=== PATIENT | male | born 1945 ===

== ENCOUNTER 2017-06-23 13:07 | Emergency (ER) | payer OTHER, MEDICARE ==
[~2017-06-23 13:07] MED LIST: ALBUTEROL 3 ML3 ML INH; ALBUTEROL0.09 MG/A1 INH; ALLOPURINOL300 MG PO; ATROVENT HFA 121 PUF INH; BUFFERIN LOW DO81 MG PO; CALCIUM 600600 M1 PO; DOXYCYCLINE100 MG PO; FUROSEMIDE40 MG PO; HCTZ/TRIAMTEREN1 CAP PO; METOPROLOL SUCC50 M1 PO; MIRALAX17 GM PO; MULTIVITAMIN1 TAB PO; PROSCAR5 MG PO; ZYRTEC ALLERGY10 MG PO
--- NOTE | 2017-06-23 16:51 | ED GI/GU/ABDOMINAL COMPLAINT ---
History of Present Illness General Chief Complaint: General Adult Stated Complaint: RECTAL BLEEDING Source: patient Exam Limitations: no limitations Vital Signs & Intake/Output Vital Signs & Intake/Output Vital Signs Date Time Temp Pulse Resp B/P B/P Pulse O2 O2 Flow FiO2 Mean Ox Delivery Rate 06/23 1832 82 20 117/73 98 Room Air 06/23 1600 98.0 88 20 122/78 100 Room Air 06/23 1338 97.0 88 18 119/83 93 Room Air Allergies Coded Allergies: adhesive (RASH 06/23/17) bacitracin (From NEOSPORIN ([id number])) (RASH 06/23/17) neomycin (From NEOSPORIN ([id number])) (RASH 06/23/17) polymyxin B (From NEOSPORIN ([id number])) (RASH 06/23/17) Reconcile Medications Allopurinol 300 MG TABLET 1 TAB PO DAILY GOUT (Reported) Alprazolam 0.25 MG TABLET 2 TAB PO PRN ANXIETY (Reported) Aspirin (Ecotrin*) 81 MG TABLET.DR 1 TAB PO QAM HEART/BLOOD (Reported) Calcium Carbonate/Vitamin D3 (Calcium 600+D Softgel) 600 MG CALCIUM-200 UNIT CAPSULE 1 CAP PO BID SUPPLEMENT (Reported) Cetirizine HCl (Zyrtec) 10 MG TABLET 1 TAB PO QPM ALLERGIES (Reported) Ciclopirox Olamine (Ciclopirox) 0.77 % CREAM..G. 1 ENMA TOP QAM ANTIFUNGAL ( Reported) apply to affected area(s) Desonide 0.05 % CREAM..G. 1 ENMA TOP BID BOTH LEGS (Reported) apply to affected area(s) Famotidine (Pepcid) 20 MG TABLET 1 TAB PO QPM GI (Reported) Finasteride 5 MG TABLET 1 TAB PO QPM BPH (Reported) Furosemide 40 MG TABLET 2 TAB PO QAM DIURETIC (Reported) Furosemide (Lasix) 40 MG TABLET 1 TAB PO DAILY DIURETIC (Reported) Ipratropium [place] 42 MCG (0.06 %) SPRAY 2 SPRAY NASB TID RUNNY NOSE ( Reported) Melatonin 5 MG CAPSULE 1 CAP PO PRN SUPPLEMENT (Reported) Metoprolol Succinate 50 MG TAB.ER.24H 1 TAB PO QAM PSVT (Reported) Mometasone Furoate 0.1 % SOLUTION 1 ENMA TOP PRN SCALP ITCHING (Reported) Multivitamin (Multi-Day Vitamins) 1 EACH TABLET 1 TAB PO DAILY SUPPLEMENT ( Reported) Mupirocin 2 % OINT...G. 1 ENMA TOP PRN LEG SORES (Reported) apply to affected area(s) Naproxen 500 MG TABLET 1 TAB PO PRN PAIN (Reported) Nystatin (Nystop) 100,000 UNIT/GRAM POWDER 1 ENMA TOP QAM ANTIFUNGAL (Reported ) Polyethylene Glycol 3350 17 GRAM/DOSE POWDER 17 GM PO QAM GI (Reported) Potassium Chloride 20 MEQ TAB.ER.PRT 1 TAB PO BID SUPPLEMENT (Reported) Triamterene/Hydrochlorothiazid (Triamterene-Hctz 37.5-25 MG Cp) 37.5 MG-25 MG CAPSULE 1 CAP PO DAILY EDEMA (Reported) Triage Note: PT C/O RECTAL BLEEDING, STATES HE THINKS IT IS A HEMORRHOID. HAS A HX OF THE SAME. CALLED PCP AND GI DOCTOR AND TOLD TO COME TO THE ER. DENIES ANY ABDOMINAL PAIN. Triage Nurses Notes Reviewed? yes Duration: constant Timing: recent history Quality/Severity: moderate Severity Numbers: 5 Location: unknown Radiation: no radiation Activities at Onset: none HPI: Patient is a 71-year-old male with past medical history of, morbid obesity, muscular dystrophy- non-ambulatory, kidney cancer in remission status post left nephrectomy, brain AVM with cerebral hemorrhage,, blood pressure, BPH, hemorrhoids who presents to emergency room STATING THAT yesterday he woke up in his bed and noted bright red blood soaking his sheets and mattress. Patient denies any active bleeding that day and was asymptomatic Patient states that he had a bowel movement that day, yesterday and it was no melena no bright red blood noted he states it was normal brown color Patient does state that he woke up again and his bed in which she noted bright red blood in his sheet and the mattress however it was less in volume. Patient became concerned and presents to emergency room. Patient denies any fever, chills, lightheaded sensation abdominal pain nausea vomiting. Patient states that he has received colonoscopy showing concerns in the past of hemorrhoids. She is able to tolerate by mouth. (JAM DAY) Past History Travel History Traveled to [place] past 21 day No Medical History Any Pertinent Medical History? 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 No (JAM DAY) Review of Systems Review of Systems Constitutional: Reports: no symptoms. EENTM: Reports: no symptoms. Respiratory: Reports: no symptoms. Cardiovascular: Reports: no symptoms. GI: Reports: see HPI. Genitourinary: Reports: no symptoms. Musculoskeletal: Reports: no symptoms. Skin: Reports: no symptoms. Neurological/Psychological: Reports: no symptoms. Hematologic/Endocrine: Reports: see HPI, bleeding. Immunologic/Allergic: Reports: no symptoms. All Other Systems: Reviewed and Negative (JAM DAY) Physical Exam Physical Exam General Appearance: no apparent distress, alert, obese Head: atraumatic Eyes: Bilateral: normal appearance. Neck: normal inspection, supple Respiratory: normal breath sounds, chest non-tender Cardiovascular: regular rate/rhythm Gastrointestinal: normal bowel sounds, soft, non-tender Rectal: normal rectal tone Extremities: normal range of motion Neurologic/Psych: no motor/sensory deficits Skin: warm/dry Comments: rectal- noted nonthrombosed nontender external hemorrhoid with no active bleeding no discharge noted minimal 5 mm internal nonthrombosed nontender internal hemorrhoid with no active bleeding No surrounding rectal or perirectal fluctuance or erythema tenderness or induration Brown stool noted no melena negative fecal occult blood test Diagram Body Front & Back 1) Noted 1 cm blood blister with centralized opening with upon palpation and pressure there was mild bleeding noted no surrounding erythema no warmth no tenderness no active purulent discharge 2) Noted erythema nontender 3) Noted erythema nontender 4) 4 cm linear well-healing excoriation with no active bleeding no active discharge Core Measures ACS in differential dx? No Severe Sepsis Present: No Septic Shock Present: No (JAM DAY) Progress Differential Diagnosis: biliary colic, bowel obstruction, colon cancer, cholecystitis, diverticulitis, epididymitis, esophageal varices, gastritis, hepatitis, hernia, hemorrhoids, ischemic bowel, inflamm bowel dis, Vijaya-Nellie tear, orchitis, pancreatitis, prostatitis, peptic ulcer, PUD/GERD, perforated viscous, pyelonephritis, SBO, STD, testicular torsion, ureterolithiasis, urinary retention, urethritis, UTI/pyelo Plan of Care: Orders Procedure Date/time Status CASE MANAGEMENT CONSULT 06/23 1914 Active Patient on examination has no concerns of rectal bleeding on examination. Patient's vital signs were unremarkable. Patient has nontender abdomen. Due to history of present illness and exam findings or suspicion of a blood blister to the sacral region which is most likely causing the bleeding. No surrounding concern of infection to this area I applied gauze and Tegaderm for dressing application and to cease future occurrences of bleeding Patient's rectal region was thoroughly inspected whichconcerns of active hemorrhoid bleeding or concerns of perirectal or rectal abscess. No concerns of cellulitis or surrounding infection. Patient's right lower extremity was also inspected which shows no concerns of infection to the excoriation noted from the diagram dictated from the exam Patient does have concerns of lower extremity chronic stasis dermatitis and no concerns of cellulitis at this point Discussed patient with case management who will evaluate for home wound care services Patient home wound care services lives in a private residence in which his family takes care of him which she has no home professional service care (JAM DAY) Initial ED EKG: none (JAM DAY) Departure Departure Disposition: HOME OR SELF CARE Condition: Stable Clinical Impression Primary Impression: Blood blister Secondary Impressions: Excoriation of right lower leg, External hemorrhoid, Internal hemorrhoid, Stasis dermatitis of both legs Referrals: WESTLEY CAMPBELL,JAM Otto (PCP/Family) Additional Instructions: As discussed YOU will begin to receive home health care for wound care. If you note worsening symptoms or have a new concerning symptom return to emergency room immediately. Continue home medications as directed If the dressings fall off the have been applied to emergency room reapply with the extra bandages provided to you Departure Forms: Customer Survey General Discharge Information (JAM DAY) PA/FBI INVESTIGATOR Co-Sign Statement Statement: ED Attending supervision documentation- [X] I saw and evaluated the patient. I have also reviewed all the pertinent lab results and diagnostic results. I agree with the findings and the plan of care as documented in the PA's/FBI INVESTIGATOR's documentation. [X] I have reviewed the ED Record and agree with the PA's/FBI INVESTIGATOR's documentation. [] Additions or exceptions (if any) to the PAs/FBI INVESTIGATOR's note and plan are summarized below: [] (PANTERA CAMPBELL,DANIAL Toussaint)
[2017-06-23] MEDS ORDERED: ALLOPURINOL300 M1 PO (19:11)
[2017-06-23] MEDS ORDERED: DESONIDE15 GM TOP (19:12)
[2017-06-23] MEDS ORDERED: CICLOPIROX15 GM TOP (19:12)
[2017-06-23] MEDS ORDERED: TRIAMTERENE-HC1 EAC3 PO (19:12)
[2017-06-23] MEDS ORDERED: POTASSIUM CHLO20 ME2 PO (19:13)
[2017-06-23] MEDS ORDERED: IPRATROPIUM BRO15 M1 NASB (19:13)
[2017-06-23] MEDS ORDERED: POLYETHYLENE G255 GM PO (19:14)
[2017-06-23] MEDS ORDERED: FUROSEMIDE40 M1 PO (19:14)
[2017-06-23] MEDS ORDERED: METOPROLOL SUCC50 M2 PO (19:14)
[2017-06-23] MEDS ORDERED: LASIX40 M1 PO (19:14)
[2017-06-23] MEDS ORDERED: NYSTOP60 GM TOP (19:15)
[2017-06-23] MEDS ORDERED: PEPCID20 M1 PO (19:16)
[2017-06-23] MEDS ORDERED: ASPIRIN EC81 M1 PO (19:16)
[2017-06-23] MEDS ORDERED: FINASTERIDE5 M1 PO (19:16)
[2017-06-23] MEDS ORDERED: CALCIUM600 M3 PO (19:17)
[2017-06-23] MEDS ORDERED: CALCIUM 600+D1 EACH PO (19:18)
[2017-06-23] MEDS ORDERED: ZYRTEC10 M3 PO (19:18)
[2017-06-23] MEDS ORDERED: MULTI-DAY VITA1 EACH PO (19:18)
[2017-06-23] MEDS ORDERED: MOMETASONE FURO30 ML TOP (19:19)
[2017-06-23] MEDS ORDERED: MUPIROCIN22 GM TOP (19:19)
[2017-06-23] MEDS ORDERED: MELATONIN5 M5 PO (19:19)
[2017-06-23] MEDS ORDERED: NAPROXEN500 M2 PO (19:20)
[2017-06-23] MEDS ORDERED: ALPRAZOLAM0.25 M1 PO (19:20)
[2017-06-23 20:20] VITALS: BP 126/76
--- NOTE | 2017-06-24 08:26 | NUR ---
06/24 CASE MGMT- CALL FROM BECKI FROM [facility] STATES THEY WONT BE ABLE TO HAVE SOMEONE GO OUT TO SEE PT UNTIL TUESDAY- CALL TO PT WHOM STATES HE WOULD LIKE TO STAY WITH [facility] IF POSSIBLE- SPOKE WITH DR CROW WHOM LOOKED AT JAM S ER NOTE AND STATES ITS OK IF RN COMES OUT TUESDAY FOR WOUND CARE. PT MADE AWARE AND IN AGEEEMENT WITH D/C PLAN.
== END 2017-06-23 20:59 ==
LOC: ERH 13:07
DX: K64.4 Residual hemorrhoidal skin tags (principal); K64.8 Other hemorrhoids; I87.2 Venous insufficiency (chronic) (peripheral); S80.811A Abrasion, right lower leg, initial encounter; S30.820A Blister (nonthermal) of lower back and pelvis, initial encounter; X58.XXXA Exposure to other specified factors, initial encounter; Y92.9 Unspecified place or not applicable